=== PATIENT | female | born 1945 | race Caucasian/White ===

== ENCOUNTER 2017-03-09 12:26 | Emergency (ER) | payer MEDICARE ==
[~2017-03-09] VITALS: Ht 170.2 cm; Wt 55.0 kg
[~2017-03-09 12:26] MED LIST: CLON1 PO; LEXA20TA PO; MECL-62 PO
[2017-03-09 12:29] VITALS: BP 152/72; PULSE 80; RESP 15; TEMP 98.3; O2SAT 97
--- NOTE | 2017-03-09 12:31 | PD ---
Physical Exam Time Seen by Provider: 12:29 Narrative 71yo c/o SOB, left sided neck pain that started last night. Tremors x 1 week. +left sided chest pain. Dr. Topete told her to come in for evaluation, that it sounded like she was having a heart attack. Patient seen in triage. VS reviewed. Patient awaiting bed placement. MDM Supervised Visit with JUNAID: Celina Rowan Mar 09, 2017 12:31
[2017-03-09] MEDS ORDERED: CLON.5 PO (14:29)
[2017-03-09] MEDS ORDERED: ESCI20TA PO (14:29)
[2017-03-09 14:34] VITALS: BP 147/72; PULSE 62; RESP 17; O2SAT 100
--- NOTE | 2017-03-09 14:59 | PD ---
HPI Chief Complaint: Respiratory Symptoms Time Seen by Provider: 14:54 Travel History International Travel<30 days: No Contact w/Intl Traveler<30days: No Traveled to known affect area: No History of Present Illness HPI 71 year old female presents to the emergency department for evaluation of left- sided neck pain, midsternal chest pain, shortness of breath, tremors, abdominal pain. Patient states that the tremors, abdominal pain has started approximately one week ago. She states she's had some left-sided neck pain and midsternal chest pain that started a few days ago as well. He states the pain is currently 5/10. She states she has had chills, but no fevers. Patient reports history of COPD, anxiety, depression. She denies any cardiac history. She has not taken any aspirin today. She also states that she is having abdominal pain as well that started approximately a week ago. Patient states that she has chronic shortness of breath, but this is slightly different than normal. PFSH Past Medical History Anxiety: Yes Depression: Yes Cancer: No Cardiovascular Problems: No COPD: Yes Diabetes: No Diminished Hearing: No Endocrine: No Gastrointestinal Disorders: Yes (REFLUX) GERD: Yes Genitourinary: Yes (URINARY INCONTINENCE) Hepatitis: No Hiatal Hernia: No Immune Disorder: No Musculoskeletal: Yes (CHRONIC BACK & HIP PAIN) Neurologic: Yes (NUMBNESS RIGHT LEG AND FOOT) Psychiatric: Yes (ANXIETY DEPRESSION) Reproductive: No Respiratory: Yes (COPD,SOB) Thyroid Disease: No Influenza Vaccination: No Past Surgical History Abdominal Surgery: Yes (EMILIA) Cholecystectomy: Yes (02) Gynecologic Surgery: Yes (PARTIAL HYSTERECTOMY) Hysterectomy: Yes () Pacemaker: No Other Surgery: Yes Social History Alcohol Use: Yes (BEER 12 PK EACH WEEKEND) Tobacco Use: Yes (1 ppd) Substance Use: No Allergies-Medications (Allergen,Severity, Reaction): Coded Allergies: No Known Allergies (Verified , 03/09/17) Reported Meds & Prescriptions Reported Meds & Active Scripts Active Macrodantin (Nitrofurantoin Macrocrystal) 100 Mg Cap 100 Mg PO BID 5 Days Reported Klonopin (Clonazepam) 0.5 Mg Tab 0.5 Mg PO BID Escitalopram (Escitalopram Oxalate) 20 Mg Tab 20 Mg PO DAILY Review of Systems Except as stated in HPI: all other systems reviewed are Neg Physical Exam Narrative GENERAL: Well-nourished, well-developed female patient, ambulatory. Afebrile. SKIN: Focused skin assessment warm/dry. HEAD: Normocephalic. Atraumatic. EYES: No scleral icterus. No injection or drainage. NECK: Supple, trachea midline. No JVD or lymphadenopathy. CARDIOVASCULAR: Regular rate and rhythm without murmurs, gallops, or rubs. RESPIRATORY: Breath sounds equal bilaterally. No accessory muscle use. Lungs sounds are clear to auscultation GASTROINTESTINAL: Abdomen soft and nondistended. Patient has tenderness throughout the abdomen upon palpation. MUSCULOSKELETAL: No cyanosis, or edema. Patient states the pain to the neck is worsened when I palpate the area. She also states is slightly worse with left lateral rotation. No midsternal chest pain reproduction with palpation. BACK: Nontender without obvious deformity. No CVA tenderness. Data Data Last Documented VS Vital Signs Date Time Temp Pulse Resp B/P Pulse Ox O2 Delivery O2 Flow Rate FiO2 03/09/17 16:06 155/72 146/67 03/09/17 16:06 61 17 99 Room Air 03/09/17 12:29 98.3 Orders Electrocardiogram (03/09/17 ) Electrocardiogram (03/09/17 14:48) Ckmb (Isoenzyme) Profile (03/09/17 14:48) Complete Blood Count With Diff (03/09/17 14:48) Comprehensive Metabolic Panel (03/09/17 14:48) D-Dimer (03/09/17 14:48) Magnesium (Mg) (03/09/17 14:48) Prothrombin Time / Inr (Pt) (03/09/17 14:48) Act Partial Throm Time (Ptt) (03/09/17 14:48) Troponin I (03/09/17 14:48) Lipase (03/09/17 14:48) Chest, Single Ap (03/09/17 14:48) Ecg Monitoring (03/09/17 14:48) Bilateral Bp Monitoring (03/09/17 14:48) Iv Access Insert/Monitor (03/09/17 14:48) Oximetry (03/09/17 14:48) Oxygen Administration (03/09/17 14:48) Aspirin Chew (Aspirin Chew) (03/09/17 15:00) Sodium Chloride 0.9% Flush (Ns Flush) (03/09/17 15:00) Sodium Chlor 0.9% 1000 Ml Inj (Ns 1000 M (03/09/17 15:00) Urinalysis - C+S If Indicated (03/09/17 14:59) Urine Culture (03/09/17 14:45) Ct Abd/Pel W Iv Contrast(Rout) (03/09/17 ) Iohexol 350 Inj (Omnipaque 350 Inj) (03/09/17 16:58) Nitrofurantoin Monohyd Macrocr (Macrobid (03/09/17 18:00) Labs Laboratory Tests Test 03/09/17 03/09/17 03/09/17 14:45 15:05 15:25 Urine Color YELLOW Urine Turbidity HAZY Urine pH 5.5 Urine Specific [place] 1.009 Urine Protein NEG mg/dL Urine Glucose (UA) NEG mg/dL Urine Ketones NEG mg/dL Urine Occult Blood SMALL Urine Nitrite POS Urine Bilirubin NEG Urine Urobilinogen LESS THAN 2.0 MG/DL Urine Leukocyte Esterase LARGE Urine RBC 17 /hpf Urine WBC 29 /hpf Urine Squamous Epithelial 2 /hpf Cells Urine Amorphous Sediment RARE Urine Bacteria MANY /hpf Urine Hyaline Casts 2 /lpf Microscopic Urinalysis Comment CULTURE INDICATED White Blood Count 8.7 TH/MM3 Red Blood Count 4.50 MIL/MM3 Hemoglobin 14.1 GM/DL Hematocrit 42.5 % Mean Corpuscular Volume 94.4 FL Mean Corpuscular Hemoglobin 31.4 PG Mean Corpuscular Hemoglobin 33.3 % Concent Red Cell Distribution Width 13.8 % Platelet Count 213 TH/MM3 Mean Platelet Volume 7.4 FL Neutrophils (%) (Auto) 67.6 % Lymphocytes (%) (Auto) 23.1 % Monocytes (%) (Auto) 6.7 % Eosinophils (%) (Auto) 1.9 % Basophils (%) (Auto) 0.7 % Neutrophils # (Auto) 5.9 TH/MM3 Lymphocytes # (Auto) 2.0 TH/MM3 Monocytes # (Auto) 0.6 TH/MM3 Eosinophils # (Auto) 0.2 TH/MM3 Basophils # (Auto) 0.1 TH/MM3 CBC Comment DIFF FINAL Differential Comment Prothrombin Time 10.9 SEC Prothromb Time International 1.0 RATIO Ratio Activated Partial 27.4 SEC Thromboplast Time D-Dimer Quantitative (PE/DVT) 0.41 MG/L FEU Sodium Level 142 MEQ/L Potassium Level 4.0 MEQ/L Chloride Level 106 MEQ/L Carbon Dioxide Level 28.8 MEQ/L Anion Gap 7 MEQ/L Blood Urea Nitrogen 6 MG/DL Creatinine 0.69 MG/DL Estimat Glomerular Filtration 84 ML/MIN Rate Random Glucose 82 MG/DL Calcium Level 9.7 MG/DL Magnesium Level 2.2 MG/DL Total Bilirubin 0.5 MG/DL Aspartate Amino Transf 10 U/L (AST/SGOT) Alanine Aminotransferase 14 U/L (ALT/SGPT) Alkaline Phosphatase 116 U/L Total Creatine Kinase 52 U/L Troponin I LESS THAN 0.02 NG/ML Total Protein 7.4 GM/DL Albumin 3.7 GM/DL Lipase 116 U/L [facility] Medical Decision Making Medical Screen Exam Complete: Yes Emergency Medical Condition: Yes Medical Record Reviewed: Yes Interpretation(s) Last Impressions Chest X-Ray 03/09/17 1448 Signed Impressions: Service Date/Time: Thursday, March 09, 2017 14:52 - CONCLUSION: No acute disease. Reji Sanchez MD FACR Abdomen/Pelvis CT 03/09/17 0000 Signed Impressions: Service Date/Time: Thursday, March 09, 2017 16:50 - CONCLUSION: 1. Nonspecific bowel gas pattern 2. Diverticula in the sigmoid colon without diverticulitis 3. I don't see free air or abscess. Reji Sanchez MD FACR Differential Diagnosis ACS versus pneumonia versus PE versus electrolyte abnormality versus dehydration versus pancreatitis versus pancreatitis versus UTI Narrative Course 71-year-old female presents to the emergency department for evaluation of tremors, neck pain, chest pain, abdominal pain. EKG shows shows sinus rhythm, heart rate 70, no acute ST changes. CBC, CMP, CK, troponin, lipase, magnesium, PTT, PT/INR, d-dimer, UA are ordered and pending. Chest x-ray is ordered and pending. Patient is given aspirin 162 mg by mouth, normal saline 1 L IV bolus. CBC is unremarkable. CMP shows no acute abnormality. CK is 52. Troponin is less than 0.02. Magnesium is 2.2. Lipase is 116. Coags are unremarkable. D- dimer is 0.41. UA shows large leukocyte esterase, positive nitrate, 29 WBC chest x-ray shows no acute disease. CT abdomen/pelvis is ordered and shows nonspecific bowel gas pattern; diverticula in the sigmoid colon without diverticulitis; no free air or abscess. My attending physician, Dr. Wang, discussed results with patient. We recommend admission to chest pain center. She is unsure if she wants to stay and will let us know. Patient is started on Macrobid for UTI. Patient does not want to stay for further evaluation. She is given prescription for Macrobid for UTI. Patient is aware that we cannot rule out ACS at this time. AMA: The risks of leaving against medical advice without further evaluation treatment were discussed with the patient. These risks include cardiac dysfunction, cardiac dysrhythmia, possible heart attack, possible stroke or . The patient indicated understanding of these risks and appeared to have the capacity to make this decision. Diagnosis Primary Impression: Chest pain Qualified Code: R07.9 - Chest pain, unspecified type Additional Impression: Urinary tract infection Qualified Code: N30.01 - Acute cystitis with hematuria Scripts Nitrofurantoin Macrocrystal (Macrodantin)100 Mg [id number] Mg PO BID 5 Days Prov:Pat Wang MD 03/09/17 Disposition: 07 AGAINST MEDICAL ADVICE Mikala Ortega Mar 09, 2017 14:59
[2017-03-09] MEDS ORDERED: SODIUM CHLOR 0.9% 1000 ML INJ 1,000 ML IV ONE (15:00)
[2017-03-09] MEDS ORDERED: ASPIRIN 81 MG CHEW TAB PO ONE (15:00)
[2017-03-09] MEDS ORDERED: SODIUM CHLORIDE 0.9% FLUSH 10 ML FLUSH IVF PRN (15:00)
[2017-03-09 15:39] LABS: AUTOMATED NEUTROPHIL # 5.9 TH/MM3 (1.8-7.7); BASOPHIL # 0.1 TH/MM3 (0-0.2); BASOPHIL % 0.7 % (0.0-2.0); EOSINOPHIL # 0.2 TH/MM3 (0-0.4); EOSINOPHIL % 1.9 % (0.0-4.0); HEMATOCRIT 42.5 % (35.0-46.0); HEMO FLAGS DIFF FINAL; LYMPH % 23.1 % (9.0-44.0); MEAN CELL VOLUME 94.4 FL (80.0-100.0); MEAN CORPUSCULAR HEMOGLOBIN 31.4 PG (27.0-34.0); MEAN CORPUSCULAR HGB CONC 33.3 % (32.0-36.0); MONO % 6.7 % (0.0-8.0); NEUT % 67.6 % (16.0-70.0); PLATELET COUNT 213 TH/MM3 (150-450); RED CELL DISTRIBUTION WIDTH 13.8 % (11.6-17.2); WHITE BLOOD COUNT 8.7 TH/MM3 (4.0-11.0)
[2017-03-09 15:43] LABS: BACTERIA, URINE MANY /hpf; BLOOD, URINE SMALL (NEG); COMMENT (UR) CULTURE INDICATED; CULTURE IF INDICATED CULTURE INDICATED; GLUCOSE,URINE NEG (NEG); HYALINE CAST, URINE 2 /lpf (RARE); KETONE, URINE NEG (NEG); PH, URINE 5.5 (5.0-8.5); SQUAMOUS EPITHELIAL CELL URINE 2 /hpf (0-5); URINE COLOR YELLOW (YELLW/STRAW)
[2017-03-09 15:51] LABS: NITRITE,URINE POS (NEG)
[2017-03-09 15:56] LABS: ALT (GPT) 14 U/L (10-53); ANION GAP 7 MEQ/L (5-15); AST (GOT) 10 U/L (15-37); BICARBONATE 28.8 MEQ/L (21.0-32.0); BLOOD UREA NITROGEN 6 MG/DL (7-18); CHLORIDE 106 MEQ/L (98-107); GLOMERULAR FILTRATION RATE 84 ML/MIN (>89); MAGNESIUM 2.2 MG/DL (1.5-2.5); SODIUM (NA) 142 MEQ/L (136-145)
[2017-03-09 16:00] LABS: ALKALINE PHOSPHATASE 116 U/L (45-117); TOTAL BILIRUBIN ADULT 0.5 MG/DL (0.2-1.0)
[2017-03-09 16:06] VITALS: BP_SYST 146; BP_SYST 155; BP_DIAS 67; BP_DIAS 72; PULSE 61; RESP 17; O2SAT 99
[2017-03-09 16:06] LABS: CREATINE KINASE 52 U/L (26-192)
[2017-03-09 16:09] LABS: APTT (PATIENT) 27.4 SEC (24.3-30.1); PROTHROMBIN TIME - PATIENT 10.9 SEC (9.8-11.6)
--- NOTE | 2017-03-09 16:17 | RADRPT ---
EXAM DATE/TIME: 03/09/2017 14:52 [facility] COMPARISON: CHEST SINGLE AP, October 26, 2012, 17:42. INDICATIONS : Shortness of breath and chest pain. MEDICAL HISTORY : Chronic obstructive pulmonary disease. SURGICAL HISTORY : None. ENCOUNTER: Initial ACUITY: 1 day PAIN SCORE: 0/10 LOCATION: chest FINDINGS: A single view of the chest demonstrates the lungs to be symmetrically aerated without evidence of mas s, infiltrate or effusion. The cardiomediastinal contours are unremarkable. Osseous structures are intact. CONCLUSION: No acute disease. Reji Sanchez MD FACR on March 09, 2017 at 16:15 Board Certified Radiologist. This report was verified electronically.
[2017-03-09] MEDS ORDERED: IOHEXOL 350 MG/ML 10 ML VIAL (for RAD DIAG) IV ONE (16:58)
--- NOTE | 2017-03-09 17:07 | RADRPT ---
EXAM DATE/TIME: 03/09/2017 16:50 [facility] COMPARISON: No previous studies available for comparison. INDICATIONS : Patient complains of abdominal pain. IV CONTRAST: 96 cc Omnipaque 350 (iohexol) IV ORAL CONTRAST: No oral contrast ingested. RADIATION DOSE: 11.87 CTDIvol (mGy) MEDICAL HISTORY : Chronic obstructive pulmonary disease. hydronephrosis SURGICAL HISTORY : Cholecystectomy. ENCOUNTER: Initial ACUITY: 1 day PAIN SCALE: 5/10 LOCATION: Bilateral lower quadrant abdomen TECHNIQUE: Volumetric scanning of the abdomen and pelvis was performed. Using automated exposure control and ad justment of the mA and/or kV according to patient size, radiation dose was kept as low as reasonably achievable to obtain optimal diagnostic quality images. DICOM format image data is available electro nically for review and comparison. FINDINGS: LOWER LUNGS: The lung base is are clear. LIVER: Incidental bilobed 1.5 cn cyst right lobe of the liver. The gallbladder surgically absent. Common d uct is normal in size. SPLEEN: Gliomas are noted in the spleen. PANCREAS: Within normal limits. KIDNEYS: Normal in size and shape. There is no mass, stone or hydronephrosis. ADRENAL GLANDS: Within normal limits. VASCULAR: Moderate vascular calcifications are noted. BOWEL/MESENTERY: Scattered diverticuli are present in the sigmoid colon without obvious acute diverticulitis. ABDOMINAL WALL: Within normal limits. RETROPERITONEUM: There is no lymphadenopathy. BLADDER: No wall thickening or mass. REPRODUCTIVE: Within normal limits. INGUINAL: There is no lymphadenopathy or hernia. MUSCULOSKELETAL: Moderate degenerative changes are noted in the lumbar spine. CONCLUSION: 1. Nonspecific bowel gas pattern 2. Diverticula in the sigmoid colon without diverticulitis 3. I don't see free air or abscess. Reji Sanchez MD FACR on March 09, 2017 at 17:03 Board Certified Radiologist. This report was verified electronically.
[2017-03-09] MEDS ORDERED: MACR100C3 PO (17:31)
--- NOTE | 2017-03-09 17:31 | PD ---
Physical Exam Narrative GENERAL: Well-nourished, well-developed patient. SKIN: Warm and dry. HEAD: Normocephalic and atraumatic. EYES: No injection or drainage. ENT: No nasal drainage noted. NECK: Supple, trachea midline. CARDIOVASCULAR: Regular rate and rhythm RESPIRATORY: no increased effort. No accessory muscle use. NEUROLOGICAL: Awake and alert. Motor and sensory grossly within normal limits. Normal speech. Data Data Last Documented VS Vital Signs Date Time Temp Pulse Resp B/P Pulse Ox O2 Delivery O2 Flow Rate FiO2 03/09/17 16:06 155/72 146/67 03/09/17 16:06 61 17 99 Room Air 03/09/17 12:29 98.3 Orders Electrocardiogram (03/09/17 ) Electrocardiogram (03/09/17 14:48) Ckmb (Isoenzyme) Profile (03/09/17 14:48) Complete Blood Count With Diff (03/09/17 14:48) Comprehensive Metabolic Panel (03/09/17 14:48) D-Dimer (03/09/17 14:48) Magnesium (Mg) (03/09/17 14:48) Prothrombin Time / Inr (Pt) (03/09/17 14:48) Act Partial Throm Time (Ptt) (03/09/17 14:48) Troponin I (03/09/17 14:48) Lipase (03/09/17 14:48) Chest, Single Ap (03/09/17 14:48) Ecg Monitoring (03/09/17 14:48) Bilateral Bp Monitoring (03/09/17 14:48) Iv Access Insert/Monitor (03/09/17 14:48) Oximetry (03/09/17 14:48) Oxygen Administration (03/09/17 14:48) Aspirin Chew (Aspirin Chew) (03/09/17 15:00) Sodium Chloride 0.9% Flush (Ns Flush) (03/09/17 15:00) Sodium Chlor 0.9% 1000 Ml Inj (Ns 1000 M (03/09/17 15:00) Urinalysis - C+S If Indicated (03/09/17 14:59) Urine Culture (03/09/17 14:45) Ct Abd/Pel W Iv Contrast(Rout) (03/09/17 ) Iohexol 350 Inj (Omnipaque 350 Inj) (03/09/17 16:58) Nitrofurantoin Monohyd Macrocr (Macrobid (03/09/17 18:00) Labs Laboratory Tests Test 03/09/17 03/09/17 03/09/17 14:45 15:05 15:25 Urine Color YELLOW Urine Turbidity HAZY Urine pH 5.5 Urine Specific [place] 1.009 Urine Protein NEG mg/dL Urine Glucose (UA) NEG mg/dL Urine Ketones NEG mg/dL Urine Occult Blood SMALL Urine Nitrite POS Urine Bilirubin NEG Urine Urobilinogen LESS THAN 2.0 MG/DL Urine Leukocyte Esterase LARGE Urine RBC 17 /hpf Urine WBC 29 /hpf Urine Squamous Epithelial 2 /hpf Cells Urine Amorphous Sediment RARE Urine Bacteria MANY /hpf Urine Hyaline Casts 2 /lpf Microscopic Urinalysis Comment CULTURE INDICATED White Blood Count 8.7 TH/MM3 Red Blood Count 4.50 MIL/MM3 Hemoglobin 14.1 GM/DL Hematocrit 42.5 % Mean Corpuscular Volume 94.4 FL Mean Corpuscular Hemoglobin 31.4 PG Mean Corpuscular Hemoglobin 33.3 % Concent Red Cell Distribution Width 13.8 % Platelet Count 213 TH/MM3 Mean Platelet Volume 7.4 FL Neutrophils (%) (Auto) 67.6 % Lymphocytes (%) (Auto) 23.1 % Monocytes (%) (Auto) 6.7 % Eosinophils (%) (Auto) 1.9 % Basophils (%) (Auto) 0.7 % Neutrophils # (Auto) 5.9 TH/MM3 Lymphocytes # (Auto) 2.0 TH/MM3 Monocytes # (Auto) 0.6 TH/MM3 Eosinophils # (Auto) 0.2 TH/MM3 Basophils # (Auto) 0.1 TH/MM3 CBC Comment DIFF FINAL Differential Comment Prothrombin Time 10.9 SEC Prothromb Time International 1.0 RATIO Ratio Activated Partial 27.4 SEC Thromboplast Time D-Dimer Quantitative (PE/DVT) 0.41 MG/L FEU Sodium Level 142 MEQ/L Potassium Level 4.0 MEQ/L Chloride Level 106 MEQ/L Carbon Dioxide Level 28.8 MEQ/L Anion Gap 7 MEQ/L Blood Urea Nitrogen 6 MG/DL Creatinine 0.69 MG/DL Estimat Glomerular Filtration 84 ML/MIN Rate Random Glucose 82 MG/DL Calcium Level 9.7 MG/DL Magnesium Level 2.2 MG/DL Total Bilirubin 0.5 MG/DL Aspartate Amino Transf 10 U/L (AST/SGOT) Alanine Aminotransferase 14 U/L (ALT/SGPT) Alkaline Phosphatase 116 U/L Total Creatine Kinase 52 U/L Troponin I LESS THAN 0.02 NG/ML Total Protein 7.4 GM/DL Albumin 3.7 GM/DL Lipase 116 U/L [facility] Supervised Visit with JUNAID: Yes Interpretation(s) CBC & BMP Diagram 03/09/17 15:05 03/09/17 15:25 Last 24 hours Impressions Chest X-Ray 03/09/17 1448 Signed Impressions: Service Date/Time: Thursday, March 09, 2017 14:52 - CONCLUSION: No acute disease. Reji Sanchez MD FACR Abdomen/Pelvis CT 03/09/17 0000 Signed Impressions: Service Date/Time: Thursday, March 09, 2017 16:50 - CONCLUSION: 1. Nonspecific bowel gas pattern 2. Diverticula in the sigmoid colon without diverticulitis 3. I don't see free air or abscess. Reji Sanchez MD FACR Differential Diagnosis I, Dr. lowery, have reviewed the advance practice practitioner's documentation and am in agreement, met with the patient face to face, made the diagnosis, and the medical decision making was done by me. *My assessment and Findings: 71 y/o female presents with chest pain and upper neck pain with associated feeling shaky. Additionally she feels like she has urinary tract infection. Workup confirms UTI. Recommended chest pain center observation which patient declined.AMA: The risks of leaving against medical advice without further evaluation treatment were discussed with the patient. These risks include cardiac dysfunction, cardiac dysrhythmia, possible heart attack, possible stroke or . The patient indicated understanding of these risks and appeared to have the capacity to make this decision. Diagnosis Primary Impression: Chest pain Qualified Code: R07.9 - Chest pain, unspecified type Additional Impression: Urinary tract infection Qualified Code: N30.01 - Acute cystitis with hematuria Patient Instructions: General Instructions Additional Instruction: Return at any time for completion of your testing, Tylenol as needed for pain Med/Other Pt SpecificInfo: Prescription(s) given Scripts Nitrofurantoin Macrocrystal (Macrodantin)100 Mg [id number] Mg PO BID 5 Days Prov:Pat Lowery MD 03/09/17 Disposition: 07 AGAINST MEDICAL ADVICE Condition: Stable Pat Lowery MD Mar 09, 2017 17:31
[2017-03-09] MEDS ORDERED: NITROFURANTOIN MONOHYD MACROCR 100 MG CAP PO SCH (18:00)
--- NOTE | 2017-03-10 15:01 | EKG ---
Date Performed: 03/09/2017 Time Performed: 12:35:43 PTAGE: 71 years EKG: Sinus rhythm POSSIBLE LEFT ATRIAL ENLARGEMENT BORDERLINE ECG PREVIOUS TRACING : 10/06/2014 12.38 Since previous tracing, no significant change noted DOCTOR: Hiwot Sanders Interpretating Date/Time 03/10/2017 15:01:09
== END 2017-03-09 18:06 | disposition left against medical advice (07) ==
LOC: NEPC 12:26
DX: R07.9 Chest pain, unspecified (principal); N30.01 Acute cystitis with hematuria; Z90.49 Acquired absence of other specified parts of digestive tract; F17.210 Nicotine dependence, cigarettes, uncomplicated; J44.9 Chronic obstructive pulmonary disease, unspecified; K21.9 Gastro-esophageal reflux disease without esophagitis; B96.1 Klebsiella pneumoniae [K. pneumoniae] as the cause of diseases classified elsewhere
CPT/HCPCS: 71010; 74177; 80053; 81001; 82550; 83690; 83735; 84484; 85025; 85379; 85610; 85730; 87077; 87086; 87186; 93005; 96360; 99285; J7030; Q9967

== ENCOUNTER 2017-04-07 09:53 | Emergency (ER) | payer MEDICARE ==
[~2017-04-07] VITALS: Ht 167.6 cm; Wt 53.0 kg
[~2017-04-07 09:53] MED LIST changes: +CLON.5 PO; -CLON1 PO; +ESCI20TA PO; -LEXA20TA PO; +MACR100C3 PO; -MECL-62 PO
[2017-04-07] MEDS ORDERED: GADODIAMIDE PF 287 MG/ML 20 ML VIAL (for RAD MRI) IVCONTRAST ONE (09:54)
[2017-04-07 10:04] VITALS: BP 153/69; PULSE 80; RESP 18; TEMP 98; O2SAT 98
[2017-04-07] MEDS ORDERED: SODIUM CHLOR 0.9% 1000 ML INJ 1,000 ML IV SCH (10:15)
--- NOTE | 2017-04-07 10:26 | PD ---
HPI Chief Complaint: Musculoskeletal Complaint Time Seen by Provider: 10:02 Travel History International Travel<30 days: No Contact w/Intl Traveler<30days: No Traveled to known affect area: No History of Present Illness HPI 71-year-old female complains of left arm numbness and weakness and left-sided neck pain and left shoulder pain. Patient states that the symptoms started 4 days ago. Patient denies any headache. Patient states that she has some blurring vision the left eye. Patient denies any weakness and numbness of the face. Patient complains of sharp pain and burning pain localized left side the neck and left shoulder area. Patient states that she had persistent weakness and numbness of the left arm started 4 days ago. Patient denies any chest pain or shortness of breath. Patient denies abdominal pain. Patient states that she has occasional numbness of the left foot for the past few days also. Patient denies any history of TIA or CVA. Patient has history of COPD, anxiety , depression. Patient status post breast biopsy recently and was reported as benign. 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 Snyder. [facility] Past Medical History Anxiety: Yes Depression: Yes Cancer: No Cardiovascular Problems: No COPD: Yes Diabetes: No Diminished Hearing: No Endocrine: No Gastrointestinal Disorders: Yes (REFLUX) GERD: Yes Genitourinary: Yes (URINARY INCONTINENCE) Hepatitis: No Hiatal Hernia: No Hypertension: No Immune Disorder: No Implanted Vascular Access Dvce: No Medical other: No Musculoskeletal: Yes (CHRONIC BACK & HIP PAIN) Neurologic: Yes (NUMBNESS RIGHT LEG AND FOOT) Psychiatric: Yes (ANXIETY DEPRESSION) Reproductive: No Respiratory: Yes (COPD,SOB) Thyroid Disease: No Influenza Vaccination: No ?: Not Past Surgical History Abdominal Surgery: Yes (EMILIA) Cholecystectomy: Yes () Gynecologic Surgery: Yes (PARTIAL HYSTERECTOMY) Hysterectomy: Yes () Pacemaker: No Other Surgery: Yes Social History Alcohol Use: Yes (BEER 12 PK EACH WEEKEND) Tobacco Use: Yes (1/2 PPD) Substance Use: No Allergies-Medications (Allergen,Severity, Reaction): Coded Allergies: No Known Allergies (Verified , 04/07/17) Reported Meds & Prescriptions Reported Meds & Active Scripts Active Macrodantin (Nitrofurantoin Macrocrystal) 100 Mg Cap 100 Mg PO BID 5 Days Reported Klonopin (Clonazepam) 0.5 Mg Tab 0.5 Mg PO BID Escitalopram (Escitalopram Oxalate) 20 Mg Tab 20 Mg PO DAILY Review of Systems General / Constitutional: No: Fever Eyes: No: Visual changes HENT: No: Headaches Cardiovascular: No: Chest Pain or Discomfort Respiratory: No: Shortness of Breath Gastrointestinal: No: Abdominal Pain Genitourinary: No: Dysuria Musculoskeletal: Positive: Weakness, Pain Skin: No Rash Neurologic: Positive: Weakness, Paresthesia Psychiatric: No: Depression Endocrine: No: Polydipsia Hematologic/Lymphatic: No: Easy Bruising Physical Exam Narrative GENERAL: Well-nourished, well-developed patient. SKIN: Focused skin assessment warm/dry. HEAD: Normocephalic. EYES: No scleral icterus. No injection or drainage. NECK: Supple, trachea midline. No JVD or lymphadenopathy. CARDIOVASCULAR: Regular rate and rhythm without murmurs, gallops, or rubs. RESPIRATORY: Breath sounds equal bilaterally. No accessory muscle use. GASTROINTESTINAL: Abdomen soft, non-tender, nondistended. MUSCULOSKELETAL: No cyanosis, or edema. BACK: Nontender without obvious deformity. No CVA tenderness. Neurologic exam: Patient is awake and alert oriented 3. Patient had decrease in light touch sensation the left arm and weakness of the left arm. No other focal neurological deficit. Data Data Last Documented VS Vital Signs Date Time Temp Pulse Resp B/P (MAP) Pulse Ox O2 Delivery O2 Flow Rate FiO2 04/07/17 13:12 72 16 149/72 (97) 97 Room Air 04/07/17 10:04 98.0 Orders Orders Electrocardiogram (04/07/17 10:14) Complete Blood Count With Diff (04/07/17 10:14) Comprehensive Metabolic Panel (04/07/17 10:14) Prothrombin Time / Inr (Pt) (04/07/17 10:14) Act Partial Throm Time (Ptt) (04/07/17 10:14) Chest, Single Ap (04/07/17 10:14) Iv Access Insert/Monitor (04/07/17 10:14) Ecg Monitoring (04/07/17 10:14) Oximetry (04/07/17 10:14) Ct Brain W/O Iv Contrast(Rout) (04/07/17 10:14) Mri Brain W/O Contrast (04/07/17 10:14) Mri C Spine W/O Contrast (04/07/17 10:14) Mra Brain W/O Contrast (Cow) (04/07/17 10:14) Mra Carotids W Contrast (04/07/17 10:14) Sodium Chlor 0.9% 1000 Ml Inj (Ns 1000 M (04/07/17 10:15) Gadodiamide Pf Inj (Omniscan Pf Inj) (04/07/17 09:54) Labs Laboratory Tests Test 04/07/17 10:50 White Blood Count 10.7 TH/MM3 Red Blood Count 4.15 MIL/MM3 Hemoglobin 12.9 GM/DL Hematocrit 37.9 % Mean Corpuscular Volume 91.3 FL Mean Corpuscular Hemoglobin 31.2 PG Mean Corpuscular Hemoglobin Concent 34.2 % Red Cell Distribution Width 13.2 % Platelet Count 271 TH/MM3 Mean Platelet Volume 7.3 FL Neutrophils (%) (Auto) 83.8 % Lymphocytes (%) (Auto) 10.7 % Monocytes (%) (Auto) 3.6 % Eosinophils (%) (Auto) 0.9 % Basophils (%) (Auto) 1.0 % Neutrophils # (Auto) 9.0 TH/MM3 Lymphocytes # (Auto) 1.1 TH/MM3 Monocytes # (Auto) 0.4 TH/MM3 Eosinophils # (Auto) 0.1 TH/MM3 Basophils # (Auto) 0.1 TH/MM3 CBC Comment DIFF FINAL Differential Comment Prothrombin Time 10.7 SEC Prothromb Time International Ratio 1.0 RATIO Activated Partial Thromboplast Time 26.1 SEC Blood Urea Nitrogen 11 MG/DL Creatinine 0.52 MG/DL Random Glucose 98 MG/DL Total Protein 6.9 GM/DL Albumin 3.5 GM/DL Calcium Level 9.1 MG/DL Alkaline Phosphatase 96 U/L Aspartate Amino Transf (AST/SGOT) 20 U/L Alanine Aminotransferase (ALT/SGPT) 18 U/L Total Bilirubin 0.3 MG/DL Sodium Level 139 MEQ/L Potassium Level 4.3 MEQ/L Chloride Level 105 MEQ/L Carbon Dioxide Level 24.6 MEQ/L Anion Gap 9 MEQ/L Estimat Glomerular Filtration Rate 116 ML/MIN MDM Medical Decision Making Medical Screen Exam Complete: Yes Emergency Medical Condition: Yes Interpretation(s) Last Impressions Head Magnetic Resonance Angiography 04/07/17 1014 Signed Impressions: Service Date/Time: March 12:19 - CONCLUSION: Normal examination. George Polanco MD Head CT 04/07/17 1014 Signed Impressions: Service Date/Time: March 10:31 - CONCLUSION: Negative exam with no evidence of acute cerebral vascular accident or hemorrhage. Yunier Xiong MD Chest X-Ray 04/07/17 1014 Signed Impressions: Service Date/Time: March 10:24 - CONCLUSION: Hyperinflation suggesting COPD. No acute infiltrate or effusion. Jamar Espinal Jr., MD Brain MRI 04/07/17 1014 Signed Impressions: Service Date/Time: March 12:19 - CONCLUSION: Patchy symmetric bilateral white matter signal changes. No acute intracranial findings George Polanco MD 12:49 PM. CBC within normal limit. CMP within normal limit. 1416 p.m. MRI of the neck and MRA of the carotid negative for acute pathology. Chronic changes. Differential Diagnosis Differential diagnosis including neuralgia, TIA, CVA. Narrative Course 71-year-old female with pain in the left-sided neck, left shoulder, left arm weakness and numbness. Spoke with neurologist director of aviation, Dr. Almodovar. Will follow-up in the office. Diagnosis Primary Impression: Neuralgia and neuritis Patient Instructions: General Instructions Additional Instructions: Hydrocodone as needed for pain. Follow-up with personal physician and neurologist. Return if worse. Med/Other Pt SpecificInfo: Prescription(s) given Scripts Hydrocodone-Acetaminophen (Krypton) 5-325 mg Tab 1 TAB PO Q6H Y for PAIN, #20 TAB 0 Refills Prov: Low Price MD 04/07/17 Disposition: 01 DISCHARGE HOME Condition: Stable Low Price MD Apr 07, 2017 10:26
--- NOTE | 2017-04-07 10:35 | RADRPT ---
EXAM DATE/TIME: 04/07/2017 10:24 [facility] COMPARISON: CHEST SINGLE AP, March 09, 2017, 14:52. INDICATIONS : Short of breath. Unable to lift/move left arm MEDICAL HISTORY : Chronic obstructive pulmonary disease. hydronephrosis.Reflux/ SURGICAL HISTORY : Cholecystectomy. L4-L5 tumor removal. ENCOUNTER: Initial ACUITY: 4 - 6 days PAIN SCORE: 0/10 LOCATION: chest FINDINGS: A single view of the chest demonstrates the lungs to be symmetrically aerated without evidence of mas s, infiltrate or effusion. The lungs are hyperinflated bilaterally. The cardiomediastinal contours a re unremarkable. Osseous structures are intact. CONCLUSION: Hyperinflation suggesting COPD. No acute infiltrate or effusion. Jamar Espinal Jr., MD on April 07, 2017 at 10:33 Board Certified Radiologist. This report was verified electronically.
--- NOTE | 2017-04-07 10:43 | RADRPT ---
EXAM DATE/TIME: 04/07/2017 10:31 [facility] COMPARISON: No previous studies available for comparison. INDICATIONS : Left neck and arm pain. Evaluate for cerebrovascular accident. RADIATION DOSE: 61.64 CTDIvol (mGy) MEDICAL HISTORY : Chronic obstructive pulmonary disease. SURGICAL HISTORY : Cholecystectomy. Hysterectomy. ENCOUNTER: Initial ACUITY: 4 - 6 days PAIN SCALE: 0/10 LOCATION: cranial TECHNIQUE: Multiple contiguous axial images were obtained of the head. Using automated exposure control and adj ustment of the mA and/or kV according to patient size, radiation dose was kept as low as reasonably a chievable to obtain optimal diagnostic quality images. DICOM format image data is available electro nically for review and comparison. FINDINGS: CEREBRUM: The ventricles are normal for age. No evidence of midline shift, mass lesion, hemorrhage or acute in farction. No extra-axial fluid collections are seen. POSTERIOR FOSSA: The cerebellum and brainstem are intact. The 4th ventricle is midline. The cerebellopontine angle i s unremarkable. EXTRACRANIAL: The visualized portion of the orbits is intact. SKULL: The calvaria is intact. No evidence of skull fracture. CONCLUSION: Negative exam with no evidence of acute cerebral vascular accident or hemorrhage. Yunier Xiong MD on April 07, 2017 at 10:40 Board Certified Radiologist. This report was verified electronically.
[2017-04-07 10:54] VITALS: RESP 18; O2SAT 97
[2017-04-07 11:03] LABS: BASOPHIL # 0.1 TH/MM3 (0-0.2); EOSINOPHIL # 0.1 TH/MM3 (0-0.4); EOSINOPHIL % 0.9 % (0.0-4.0); HEMATOCRIT 37.9 % (35.0-46.0); LYMPH % 10.7 % (9.0-44.0); LYMPHOCYTE # 1.1 TH/MM3 (1.0-4.8); MEAN CELL VOLUME 91.3 FL (80.0-100.0); MEAN CORPUSCULAR HEMOGLOBIN 31.2 PG (27.0-34.0); MEAN CORPUSCULAR HGB CONC 34.2 % (32.0-36.0); MONO % 3.6 % (0.0-8.0); NEUT % 83.8 % (16.0-70.0); PLATELET COUNT 271 TH/MM3 (150-450); RED BLOOD COUNT 4.15 MIL/MM3 (4.00-5.30); RED CELL DISTRIBUTION WIDTH 13.2 % (11.6-17.2); WHITE BLOOD COUNT 10.7 TH/MM3 (4.0-11.0)
[2017-04-07 11:04] LABS: HEMO FLAGS DIFF FINAL
[2017-04-07 11:07] LABS: CHLORIDE 105 MEQ/L (98-107); POTASSIUM 4.3 MEQ/L (3.5-5.1); SODIUM (NA) 139 MEQ/L (136-145)
[2017-04-07 11:10] LABS: ANION GAP 9 MEQ/L (5-15); BICARBONATE 24.6 MEQ/L (21.0-32.0); BLOOD UREA NITROGEN 11 MG/DL (7-18)
[2017-04-07 11:11] LABS: APTT (PATIENT) 26.1 SEC (24.3-30.1); PROTHROMBIN TIME - PATIENT 10.7 SEC (9.8-11.6)
[2017-04-07 11:13] LABS: ALT (GPT) 18 U/L (10-53); AST (GOT) 20 U/L (15-37); GLOMERULAR FILTRATION RATE 116 ML/MIN (>89)
[2017-04-07 11:15] LABS: TOTAL BILIRUBIN ADULT 0.3 MG/DL (0.2-1.0)
[2017-04-07 11:16] LABS: ALKALINE PHOSPHATASE 96 U/L (45-117)
[2017-04-07 11:47] VITALS: BP 139/71; PULSE 71; RESP 18; O2SAT 97
--- NOTE | 2017-04-07 12:32 | RADRPT ---
EXAM DATE/TIME: 04/07/2017 12:19 [facility] COMPARISON: No previous studies available for comparison. INDICATIONS : CVA. Left sided weakness with neck pain. MEDICAL HISTORY : None. SURGICAL HISTORY : Appendectomy. Cholecystectomy. Hysterectomy. ENCOUNTER: Initial ACUITY: 1 week PAIN SCORE: 0/10 LOCATION: Head. Please note a normal MRA of the brain does not entirely exclude the possibility of a small aneurysm, nor the possibility of distal intracranial vessel disease. TECHNIQUE: 3D time of flight MRA was performed. Source images, multiplanar STS MIP, and 3D volume MIP reconstru ctions were reviewed. FINDINGS: There is excellent visualization of the major intracranial arteries out to the second-order branch ve ssels. There is no evidence for aneurysm, vessel truncation or stenosis, and no evidence for vascula r malformation. CONCLUSION: Normal examination. George Polanco MD on April 07, 2017 at 12:28 Board Certified Radiologist. This report was verified electronically.
--- NOTE | 2017-04-07 12:40 | RADRPT ---
EXAM DATE/TIME: 04/07/2017 12:19 [facility] COMPARISON: No previous studies available for comparison. INDICATIONS : CVA. Left sided weakness with neck pain. MEDICAL HISTORY : None. SURGICAL HISTORY : Hysterectomy. Cholecystectomy. Appendectomy. ENCOUNTER: Initial ACUITY: 1 week PAIN SCORE: 4/10 LOCATION: Neck. TECHNIQUE: Multiplanar, multisequence MRI of the brain was performed without contrast. FINDINGS: CEREBRUM: The ventricles are normal for age. No evidence of midline shift, mass lesion, hemorrhage or acute in farction. No extraaxial fluid collections are seen. The pituitary gland and suprasellar cistern are normal in configuration. WHITE MATTER: Scattered punctate areas of focal white matter T2 prolongation in the periventricular and subcortical white matter, nonspecific. POSTERIOR FOSSA: The cerebellum and brainstem are intact. The 4th ventricle is midline. The cerebellopontine angle is unremarkable. The cerebellar tonsils are normal in position. DIFFUSION IMAGING: No focal areas of restricted diffusion are seen. No evidence of acute infarction. EXTRACRANIAL: The visualized portions of the orbits and paranasal sinuses are unremarkable. CONCLUSION: Patchy symmetric bilateral white matter signal changes. No acute intracranial findings George Polanco MD on April 07, 2017 at 12:35 Board Certified Radiologist. This report was verified electronically.
--- NOTE | 2017-04-07 13:09 | RADRPT ---
EXAM DATE/TIME: 04/07/2017 12:19 [facility] COMPARISON: No previous studies available for comparison. INDICATIONS : Pain. Neck pain for one week with left sided weakness. MEDICAL HISTORY : None. SURGICAL HISTORY : Hysterectomy. Appendectomy. Cholecystectomy. ENCOUNTER: Initial ACUITY: 1 week PAIN SCORE: 4/10 LOCATION: Neck. TECHNIQUE: Multiplanar, multisequence MRI examination of the cervical spine was performed. FINDINGS: VERTEBRAE: Normal vertebral body height. Homogeneous marrow signal. ALIGNMENT: No evidence of subluxation. CORD: Normal configuration and signal. POST FOSSA: The cerebellar tonsils are normal in position. C2-C3: The thecal sac has a normal configuration. There is no evidence of disc herniation or spinal canal s tenosis. The neural foramina are patent bilaterally. C3-C4: A mild central bulge. This just touches the ventral portion of the cord without flattening. The centr al canal measures 9 mm in anterior to posterior dimension within the midline. Neural foramen are beltran nt bilaterally. C4-C5: A central disc protrusion flattens the ventral portion of the cord within the midline. Central canal measures 8 mm in the midline. Narrowing of the right neural foramen is moderate in nature. Left is pa tent. C5-C6: There is disc space narrowing with a broad-based disc osteophyte complex that flattens the ventral po rtion of the cord more pronounced to the right of midline. Central canal measures 8 mm in the midline . There is narrowing of both lateral recesses but particularly on the right. There is significant butch rowing of the right neural foramen and moderate narrowing of the left. This is secondary to bony unco vertebral hypertrophy. C6-C7: The thecal sac has a normal configuration. There is no evidence of disc herniation or spinal canal s tenosis. The neural foramina are patent bilaterally. C7-T1: The thecal sac has a normal configuration. There is no evidence of disc herniation or spinal canal s tenosis. The neural foramina are patent bilaterally. CONCLUSION: 1. 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 Each level detailed in the above discussion. Jamar Espinal Jr., MD on April 07, 2017 at 13:04 Board Certified Radiologist. This report was verified electronically.
[2017-04-07 13:12] VITALS: BP 149/72; PULSE 72; RESP 16; O2SAT 97
--- NOTE | 2017-04-07 14:07 | RADRPT ---
EXAM DATE/TIME: 04/07/2017 12:19 [facility] COMPARISON: No previous studies available for comparison. INDICATIONS : Stroke. Left sided weakness with neck pain. CONTRAST: 20 cc Omniscan (gadodiamide) IV MEDICAL HISTORY : None. SURGICAL HISTORY : Appendectomy. Cholecystectomy. Hysterectomy. ENCOUNTER: Initial ACUITY: 1 week PAIN SCORE: 4/10 LOCATION: Neck. Percent stenosis is calculated using the diameter of the stenotic region over the diameter of the nor mal distal internal carotid artery. TECHNIQUE: Bolus infused MRA of the extracranial circulation was performed using a neurovascular coil. Post pro cessing was performed including rotating subvolume maximum intensity projections of each carotid ibrahima ry, rotating full volume maximum intensity projections of both carotid arteries, sagittal and coronal sliding thin slab reformations of each carotid artery, and left oblique sliding thin slab reformatio n through the aortic arch to include the origin of the arch branch vessels. FINDINGS: AORTIC ARCH: There is a three vessel origin of the great vessels from the aorta. No evidence of ostial narrowing. RIGHT CAROTID: The common carotid artery is intact. The carotid bulb has a normal configuration without ulceration or narrowing. The internal carotid artery lumen is smooth without stenosis. The external carotid ar siddharth is intact. LEFT CAROTID: The common carotid artery is intact. The carotid bulb has a normal configuration without ulceration or narrowing. The internal carotid artery lumen is smooth without stenosis. The external carotid ar siddharth is intact. VERTEBRALS: The vertebral arteries have a symmetric diameter. No stenotic lesions are seen. CONCLUSION: 1. Patent carotid arteries and vertebral arteries bilaterally. Jamar Espinal Jr., MD on April 07, 2017 at 14:03 Board Certified Radiologist. This report was verified electronically.
[2017-04-07] MEDS ORDERED: NORC5TAB PO (14:39)
[2017-04-07 14:46] VITALS: BP 157/66; PULSE 78; RESP 16; O2SAT 98
--- NOTE | 2017-04-09 01:22 | EKG ---
Date Performed: 04/07/2017 Time Performed: 10:45:39 PTAGE: 71 years EKG: Sinus rhythm POSSIBLE LEFT ATRIAL ENLARGEMENT BORDERLINE ECG PREVIOUS TRACING : 03/09/2017 12.35 Compared to prior tracing no significant change DOCTOR: Casey Menchaca Interpretating Date/Time 04/09/2017 01:22:19
== END 2017-04-07 15:03 | disposition home or self-care (01) ==
LOC: PHED 09:53
DX: M79.2 Neuralgia and neuritis, unspecified (principal); M62.81 Muscle weakness (generalized); M54.2 Cervicalgia; M25.512 Pain in left shoulder; H53.8 Other visual disturbances; R94.31 Abnormal electrocardiogram [ECG] [EKG]; F17.200 Nicotine dependence, unspecified, uncomplicated; Z87.09 Personal history of other diseases of the respiratory system; Z86.59 Personal history of other mental and behavioral disorders; Z87.19 Personal history of other diseases of the digestive system; Z87.448 Personal history of other diseases of urinary system; Z87.39 Personal history of other diseases of the musculoskeletal system and connective tissue; Z86.69 Personal history of other diseases of the nervous system and sense organs
CPT/HCPCS: 70450; 70544; 70548; 70551; 71010; 72141; 80053; 85025; 85610; 85730; 93005; 96360; 96361; 99285; A9579; J7030